=== PATIENT | male | born 1960 | race Caucasian/White ===

== ENCOUNTER 2016-07-27 12:10 | Emergency (ER) | payer OTHER ==
[~2016-07-27] VITALS: Ht 165.1 cm; Wt 75.7 kg
[~2016-07-27 12:10] MED LIST: OXYC-57 PO
[2016-07-27 12:11] VITALS: PULSE 105; TEMP 36.4; O2SAT 96; Ht 165.1 cm; Wt 75.7 kg
[2016-07-27] MEDS ORDERED: XYLOCAINE 1%/SOD BICARB 20 ML VIAL INFIL ONE (12:15)
--- NOTE | 2016-07-27 12:18 | EMERGENCY ROOM VISIT NOTE ---
ED Visit Note First contact with patient: 12:14 CHIEF COMPLAINT: Finger laceration HISTORY OF PRESENT ILLNESS: This 55-year-old male patient presents to the emergency department ambulatory after cutting the left second finger with a utility knife at work just prior to arrival. The bleeding has not stopped. Denies weakness or numbness of the finger. The patient has full range of motion of the fingers. The patient denies any pain. The patient denies any other injuries. The patient's tetanus shot is up to date. REVIEW OF SYSTEMS: A 6 system review of systems was completed with positives and pertinent negatives listed in the HPI. ALLERGIES: None MEDICATIONS: None PMH: Patient denies SOCIAL HISTORY: The patient is employed. He is a smoker PHYSICAL EXAM: Vital Signs: Reviewed Nurse's notes, vital signs stable. GENERAL : This is a 55-year-old male, in no acute distress, well developed, well nourished. SKIN: There is a 3 cm long laceration on the dorsal aspect of the left second finger. The edges gape apart with traction. There is no foreign material in the wound and it looks clean. There is mild bleeding. No deep structures such as tendons, bones, or nerves are seen in the base of the wound. Extension and flexion of the finger is full and strong. Full range of motion of the wrist and other fingers. Capillary refill less than 2 seconds. Normal sensation to light and sharp touch. EMERGENCY DEPARTMENT COURSE: I examined the patient. Using sterile technique the wound was cleaned with Betadine. 4 ml of 1% buffered lidocaine was used to infiltrate the wound to anesthetize the patient. The area was sterilely draped. Once the patient was numb, the wound was copiously irrigated under pressure with sterile saline. The wound was explored in a bloodless field after tourniquet application and there were no deep structures such as tendons, bone, or ligaments present. The laceration was repaired using 5 simple interrupted 5-0 nylon sutures. The patient tolerated the procedure well. The bleeding stopped. The area was cleaned with sterile saline and dressed with bacitracin ointment and bandage. The patient was discharged home in good condition. DIAGNOSIS: Finger laceration DISCHARGE INSTRUCTIONS & TREATMENT: Keep wound clean and dry. Do not allow any crusting or dried blood to accumulate on sutures. If this occurs, use a 1:1 solution of hydrogen peroxide/water on a Q-tip to clean the wound. Use an antibiotic ointment for 3-4 days, then let wound dry. Suture removal in 10-12 days. Return sooner for any signs of infection (increasing redness, swelling, drainage). Ice and elevate for swelling and pain. Ibuprofen 600 mgevery 6 hrs for pain. Keep covered when in sun until sutures removed then SPF 50 or higher for one year. Vitamin E oil if desired two weeks after suture removal for reduction of scar. Problem List Medical Problems: (1) Hyperlipidemia Status: Chronic Current/Historical Medications Scheduled Atorvastatin (Lipitor), Unknown Dose PO DAILY Allergies Coded Allergies: No Known Allergies (Unverified , 07/27/16) Vital Signs Date Time Temp Pulse Resp B/P Pulse Ox O2 Delivery O2 Flow Rate FiO2 07/27/16 12:11 36.4 105 18 96 Room Air Medications Administered Medications (Trade) Dose Ordered Sig/Carloz Route Start Time Stop Time Status Last Admin Dose Admin Lidocaine HCl (Buffered Lidocaine 1% Inj) 20 ml STK-MED ONCE INFIL 07/27/16 12:15 07/27/16 12:16 DC 07/27/16 12:15 20 ML Departure Information Impression Primary Impression: Finger laceration Dispostion Home / Self-Care Condition GOOD Referrals No Doctor, Assigned (PCP) Patient Instructions ED Laceration All, [facility] Additional Instructions Keep wound clean and dry. Do not allow any crusting or dried blood to accumulate on sutures. If this occurs, use a 1:1 solution of hydrogen peroxide/ water on a Q-tip to clean the wound. Use an antibiotic ointment for 3-4 days, then let wound dry. Suture removal in 10-12 days. Return sooner for any signs of infection (increasing redness, swelling, drainage). Ice and elevate for swelling and pain. Ibuprofen 600 mgevery 6 hrs for pain. Keep covered when in sun until sutures removed then SPF 50 or higher for one year. Vitamin E oil if desired two weeks after suture removal for reduction of scar. Problem Qualifiers Primary Impression: Finger laceration Encounter type: initial encounter Qualified Codes: S61.219A - Laceration without foreign body of unspecified finger without damage to nail, initial encounter
[2016-07-27] MEDS ORDERED: ATOR-22 PO (12:33)
== END 2016-07-27 12:39 | disposition home or self-care (01) ==
LOC: C.EDB 12:11 → C.EDD 12:39
DX: S61.211A Laceration without foreign body of left index finger without damage to nail, initial encounter (principal); W26.0XXA Contact with knife, initial encounter; Y99.0 Civilian activity done for income or pay; F17.200 Nicotine dependence, unspecified, uncomplicated; E78.5 Hyperlipidemia, unspecified

== ENCOUNTER 2016-08-05 12:56 | Emergency (ER) | payer OTHER ==
[~2016-08-05] VITALS: Ht 167.6 cm; Wt 74.7 kg
[~2016-08-05 12:56] MED LIST changes: +ATOR-22 PO; -OXYC-57 PO
[2016-08-05 13:00] VITALS: BP 111/76; PULSE 99; TEMP 37.4; O2SAT 97; Ht 167.6 cm; Wt 74.7 kg
--- NOTE | 2016-08-05 17:04 | EMERGENCY ROOM VISIT NOTE ---
ED Visit Note First contact with patient: 13:04 Chief complaint: Retained sutures left index finger. HPI: This 55-year-old white male presents to the ER for removal of retained sutures in the left index finger. The patient denies any fevers, chills, sweats , nausea, streaking, purulent drainage, pain with palpation, or other signs of infection. Mild redness around the suture injury sites. He has been keeping the wound clean and protected as directed. Pain is rated as 0/10. Sutures have been in place for 10 days. No other complaints. Medical history, past surgical history, family history, social history, current medications, allergies, and tetanus status: All are unchanged from previous exam. Please see the chart from the initial wound repair visit. Physical exam Vitals: Afebrile General: Well-developed, well-nourished, middle-aged white male, in no acute distress. He looks his stated age. Sitting on the bed, alert and oriented. No visible discomfort. Skin: Warm and dry with good turgor. No rashes or lesions. Sutures are in place. Wound edges are well approximated. No edema, ecchymosis, purulent drainage, or warmth. Mild erythema around the suture injury sites. It looks more inflammatory rather than infectious. No significant discomfort with palpation. Area is nonfluctuant. Neurologic: Gross sensation is intact around the wound via soft touch. Capillary refill is intact and is equal to the surrounding tissue. Impression: Healing laceration left index finger Plan: Wound was cleansed with peroxide. Sutures were removed without event. Wound remained closed. No Steri-Strips were needed. Wound care precautions were reviewed. Watch for any signs of infection, or dehiscense. Return to the ER as needed. Tylenol as needed for any discomfort. Problem List Medical Problems: (1) Hyperlipidemia Status: Chronic Current/Historical Medications Scheduled Atorvastatin (Lipitor), Unknown Dose PO DAILY Allergies Coded Allergies: No Known Allergies (Unverified , 08/05/16) Vital Signs Date Time Temp Pulse Resp B/P Pulse Ox O2 Delivery O2 Flow Rate FiO2 08/05/16 13:00 37.4 99 20 111/76 97 Room Air Departure Information Impression Primary Impression: Encounter for removal of sutures Dispostion Home / Self-Care Condition GOOD Forms HOME CARE DOCUMENTATION FORM, MOTRIN USE, TYLENOL USE, IMPORTANT VISIT INFORMATION Patient Instructions [facility] Additional Instructions Keep the area protected for 5 more days Cleanse daily with soap and water Tylenol and Motrin every 6 hours as needed for discomfort
== END 2016-08-05 13:20 | disposition home or self-care (01) ==
LOC: C.EDB 12:57 → C.EDD 13:20
DX: Z48.02 Encounter for removal of sutures (principal); S61.211A Laceration without foreign body of left index finger without damage to nail, initial encounter; W26.0XXA Contact with knife, initial encounter